=== PATIENT | male | born 1990 | race Caucasian/White ===

== ENCOUNTER 2021-08-20 18:47 | Emergency (ER) | payer SELFPAY ==
[~2021-08-20] VITALS: Ht 193 cm; Wt 68.0 kg
[2021-08-20 18:54] VITALS: BP 163/94
--- NOTE | 2021-08-20 18:58 | NUR ---
PT TO ER CHAIR C WITH [facility] AT SIDE
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
[2021-08-20 19:26] VITALS: BP 145/89
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
== END 2021-08-20 19:28 ==
LOC: MED 18:47
DX: Z02.89 Encounter for other administrative examinations (principal)
CPT/HCPCS: 99283